=== PATIENT | female | born 1975 | race Caucasian/White ===

== ENCOUNTER 2017-04-14 21:25 | Emergency (ER) | payer BC ==
[2017-04-14 21:35] VITALS: BP 133/82; BMI 29.2
[2017-04-14] MEDS ORDERED: TORADOL 60 MG VIAL IM ONE (23:08)
--- NOTE | 2017-04-14 23:14 | DR.EXTPAIN ---
HPI - Time seen Time seen: 23:09 - PCP Primary Care Physician: Arelis Salcido - Complaint/Symptoms Chief Complaint Doctor Comments: Patient states she was walking with her sister yesterday and tripped landing on her right ankle with severe pain today. States the pain is 10 of 10 and she is unable to put any weight on her right foot. States her last menstrual period was Mar 21 and she has had a bilateral tubaligation. States she is a patient of Skye Thompson. She denies head trauma or LOC. States she has not taken anything for the pain. States she heard something pop in her right ankle when she fell. Chief Complaint:: Fell at home and twisted right ankle Self Treatment fo Chief Complaint: wrapped it in an CHARLES bandage - Nurses notes reviewed Nurses Notes Review: Yes - Source History Provided: Patient - Mode of arrival Mode of Arrival: Wheelchair - Timing Onset of Chief Complaint: 04/13/17 - Context History of: None - Associated signs and symptoms Associated Signs and Symptoms: Pain, Swelling PMH - PMH Past Medical History: No Past Medical History: Anxiety Past Surgical History: Yes Surgical History: , Tonsillectomy - Family History History of Family Medical Conditions: Yes Family Medical History: [place], Coronary Artery Disease, Hypertension - Social History Does patient currently use any type of tobacco product: Yes Have you used tobacco products in the last 12 months: Yes Type of Tobacco Use: Cigarettes Alcohol Use: None Do you use any recreational Drugs:: No Lives With: Family Lives Where: Home - infectious screening In the last 2 months have you had wt loss of >10#?: NO Have you had fever, night sweats or hemotysis?: No Have you traveled outside the country in the last 6 months?: No Isolation: Standard ROS - Review of Systems Constitutional: No Symptoms Reported, Fever Eyes: No Symptoms Reported. negative: See HPI, Eye Pain, Blurred Vision, Tearing, Discharge, Photophobia, Diplopia, Other ENTM: No Symptoms Reported Respiratoy: No Symptoms Reported Cardiovascular: No Symptoms Reported. negative: See HPI, Chest Pain, Edema, Palpitations, Syncope, Cyanosis, Skin Mottling, Other Gastrointestinal/Abdominal: No Symptoms Reported. negative: See HPI, Abdominal Pain, Constipation, Diarrhea, Nausea, Vomiting, Food Intolerance, Other Genitourinary: No Symptoms Reported Neurological: No Symptoms Reported, Problems Walking. negative: See HPI, Anxiety, Depressed, Emotional Problems, Headache, Numbness, Paresthesia, Pre- existing Deficit, Seizure, Tingling, Tremors, Weakness, Dizziness, Speech Problem, Other Musculoskeletal: No Symptoms Reported, Right, Ankle, Foot Integumentary: No Symptoms Reported. negative: See HPI, Change in Color, Change in Hair/Nails, Dryness, Lesions, Lumps, Rash, Itching, Wound, Bruises, Juandice, Other Endocrine: No Symptoms Reported Psychiatric: No Symptoms Reported PE - Vital Signs Vitals: Temperature 98.2 F Pulse Rate 104 Respiratory Rate 18 Blood Pressure 133/82 O2 Sat by Pulse Oximetry 98 - General Limitations: No Limitations General Appearance: In No Apparent Distress, In Distress (moderate) - Head Head Exam: Normal Inspection, Atraumatic, Normocephalic - Eyes Eye exam: Normal Appearance, PERRL, EOMI. negative: Scleral Icterus, Conjunctival Injection, Nystagmus, Miosis, Mydrasis, Periorbital Swelling, Periorbital Tenderness, Other - ENT ENT Exam: Normal Exam, Normal Oropharynx, Normal External Ear Exam, Mucous Membranes Moist, TM's Normal Bilaterally - Neck Neck Exam: Normal Inspection, Full ROM, Trachea Midline. negative: Tenderness, Meningismus, Lymphadenopathy, Thyromegaly, Other - Chest Chest Inspection: Normal Inspection, Symmetric Chest Wall Rise - Respiratory Respiratory Exam: Normal Lung Sounds Bilat Respiratory Exam: Bilateral Clear to Auscultation - Cardiovascular Cardiovascular Exam: Regular Rate, Normal Rhythm, Normal Heart Sounds. negative : Bradycardia, Tachycardia, Irregular Rhythm, Systolic Murmur, Diastolic Murmur , Rubs, Gallop, Clicks, JVD, +S1, +S2, +S3, +S4, Other - Abdominal Exam Abdominal Exam: Normal Inspection, Normal Bowel Sounds, Soft Abdominal Tenderness: negative: RUQ, RLQ, LUQ, LLQ, Epigastrium, Suprapubic, Diffuse, Mild, Moderate, Severe, Other - Extremities Extremities Exam: Normal Inspection, Full ROM, Tenderness (right ankle moderate swelling; tender; pulse intact), Normal Capillary Refill - Upper Extremities Shoulder Exam: Normal Inspection, Full ROM. negative: Tenderness, Swelling, Abrasion, Laceration, Ecchymosis, Deformity, Crepitus, Dislocation, Erythema, Tenderness over AC Joint, Other Elbow Exam: Normal Inspection, Full ROM Forearm Exam: Normal Inspection, Full ROM Neuromotor Exam: Normal Exam Neurosensory Exam: Normal Exam Upper Ext. Vascular Exam: Capillary Refill, Radial Pulse (normal) - Lower Extremities Hip/Pelvis Exam: Normal Inspection, Full ROM Upper Leg Exam: Normal Inspection, Full ROM Knee Exam: Normal Inspection, Full ROM Lower Leg Exam: Normal Inspection, Full ROM Ankle Exam: Normal Inspection, Full ROM Foot/Toe Exam: Normal Inspection, Full ROM, Tenderness Neurovascular/Tendon Exam: Normal Capillary Refill Gait Exam: Not Tested/Not Observed, Unable to bear weight - Back Back Exam: Normal Inspection, Full ROM. negative: Tenderness, (R) CVA Tenderness, (L) CVA Tenderness, Muscle Spasm, Paraspinal Tenderness, Vertebral Tenderness, Rashes, (R) Sciatic Notch Tenderness, (L) Sciatic Notch Tendern, (R ) Straight Leg Raise, (L) Straight Leg Raise, Other - Neurological Neurological Exam: Alert, Oriented X3, CN II-XII Intact, Reflexes Normal. negative: Normal Gait (gait not tested) - Psychiatric Psychiatric Exam: Normal Affect, Normal Mood - Skin Skin Exam: Warm, Dry, Intact, Normal Color Type of Lesion: negative: Rash, Abscess, Laceration, Foreign Body, Bite/Sting, Abrasion, Other Distribution: negative: Generalized, Involves Palms/Soles, Head, Face, Neck, Thorax, Chest, Back, Abdomen, Genitals, LUE, LLE, RUE, RLE, Other Description: negative: Size, Tenderness, Erythematous, Swelling, Macular, Papular, Vesicular, Blisters, Cofluent, Bullous, Petechial, Purpuric, Urticarial , Crusting, Discharge, Fluctuant, Indurated, Other ROR - Labs Reviewed Laboratory Results Reviewed?: Yes (all x-ray results reviewed and discussed with patient) - XRAY XRAY Interpreted by: Both (right ankle: Moderate soft tissue swelling. displaced avulsion fracture talofibular ligamentous attachment.) - Diagnosis Discharge Problem: Talar fracture Qualifiers: Encounter type: initial encounter Ankle strain Qualifiers: Encounter type: initial encounter - Discharge Plan Disposition: 01 HOME, SELF-CARE Condition: Stable Prescriptions: Acetaminophen/Codeine Tab [TYLENOL w/CODEINE #3 (300 MG/30 MG) *] 1 tab PO Q4- 6H PRN #28 tab PRN Reason: Pain Naproxen [Naprosyn] 500 mg PO BID PRN #24 tab PRN Reason: Pain/Inflammation - Follow ups/Referrals Follow ups/Referrals: ARELIS SALCIDO [Primary Care Provider] - 3 days FRANCINE CAAL [STAFF PHYSICIAN] - 3 days - Instructions Instructions: Ankle Fracture, [id number], Ankle Fracture With Rehab-SportsMed
[2017-04-14] MEDS ORDERED: TORADOL 60 MG VIAL ONE (23:21)
--- NOTE | 2017-04-14 23:48 | RAD ---
Three views of the right ankle Indication: Ankle pain after fall while exercising Findings: There is circumferential soft tissue swelling within the right ankle most severely affectin g the lateral ankle. Suspected small avulsion fracture adjacent to the lateral talar body at the expe cted positioning of the talofibular ligamentous attachment. Ankle mortise is symmetric; however, ther e is an approximate 7 mm osteochondral lesion within the medial talar dome with subchondral sclerosis . Moderate enthesopathic change of the plantar fascia. Impression: 1.Moderate circumferential soft tissue swelling most severely affecting the lateral ankle with tiny o ssific density noted adjacent to the lateral talar body highly likely represent a minimally displaced avulsion fracture at the site of talofibular ligamentous attachment. 2. An approximate 7 mm osteochondral lesion within the medial talar dome with subchondral sclerosis. 3. Moderate enthesopathic change of the plantar fascia. Reported By:
--- NOTE | 2017-04-14 23:49 | RAD ---
Three views of the right foot Indication: Right foot pain after fall Findings: No acute fracture or dislocation within the right foot. Lisfranc joint alignment is mainta ined. Moderate enthesopathic change of the plantar fascia. Impression: No acute radiographic abnormality identified within the right foot. [facility] findings. Reported By:
== END 2017-04-15 01:07 | disposition home or self-care (01) ==
LOC: ER 21:43
DX: S92.152A Displaced avulsion fracture (chip fracture) of left talus, initial encounter for closed fracture (principal); S93.409A Sprain of unspecified ligament of unspecified ankle, initial encounter; M79.89 Other specified soft tissue disorders; W19.XXXA Unspecified fall, initial encounter; Y92.009 Unspecified place in unspecified non-institutional (private) residence as the place of occurrence of the external cause
CPT/HCPCS: 29515; 73610; 73630; 96372; 99282; J1885